=== PATIENT | female | born 1945 | race African-American/Black ===

== ENCOUNTER 2022-01-25 15:49 | Inpatient (IN) | payer OTHER ==
[2022-01-25 16:46] LABS: HEMATOCRIT 31.5 % (32.4-45.2); HEMOGLOBIN 9.4 G/dL (10.7-15.3); MCH 21.4 pg (25.7-33.7); MEAN CELL VOLUME 71.2 fl (80-96); PLATELET COUNT 421.7 10^3/uL (134-434); RBC 4.42 10^6/uL (3.60-5.2); RDW 21.2 % (11.6-15.6); WHITE BLOOD COUNT 10.8 10^3/uL (4.0-10.8)
[2022-01-25 16:49] LABS: ALBUMIN 3.3 g/dl (3.4-5.0); BILIRUBIN,TOTAL 0.9 mg/dl (0.2-1); CALCIUM 9.4 mg/dl (8.5-10); CREATININE 1.6 mg/dl (0.55-1.3); TOT PROT 6.8 g/dl (6.4-8.2)
[2022-01-25] MEDS ORDERED: CEFTRIAXONE 1,000 MG in DEXTROSE 5%-WATER - 50 ML IVPB ONE (17:03)
[2022-01-25] MEDS ORDERED: AZITHROMYCIN IVPB 500 MG in DEXTROSE 5%-WATER - 250 ML IVPB ONE (17:03)
[2022-01-25] MEDS ORDERED: AZITHROMYCIN 500 MG VIAL IVPB ONE (17:06)
[2022-01-25] MEDS ORDERED: cefTRIAXone SODIUM 1 GM VIAL ONE (17:06)
[2022-01-25 17:40] LABS: N-TERMINAL BNP 8650.9 pg/ml (5-450)
[2022-01-25 17:55] LABS: PLATELET ESTIMATE SLT INCREASE
[2022-01-25 17:58] LABS: LACTIC ACID 3.1 mmol/L (0.4-2.0)
[2022-01-25] MEDS ORDERED: SODIUM CHLORIDE 1,000 ML IV SCH (18:30)
[2022-01-25] MEDS ORDERED: OXcarbazepine 300 MG TABLET (UD) PO ONE (23:37)
[2022-01-26] MEDS: CALCIUM (OYSTER SHELL) 500 MG TABLET (FP) PO SCH ×2 (00:40→09:56)
[2022-01-26] MEDS ORDERED: ALBUTEROL SO4 2.5/IPRATROPIUM 0.5 INH SOL 3 ML VIAL.NEB. NEB ONE ×2 (06:13→06:14)
[2022-01-26] MEDS ORDERED: FUROSEMIDE 40 MG/4 ML INJECTABLE VIAL IVPUSH ONE (06:46)
[2022-01-26 08:04] LABS: HEMATOCRIT 27.8 % (32.4-45.2); HEMOGLOBIN 8.3 G/dL (10.7-15.3); MCH 21.2 pg (25.7-33.7); MCHC 29.8 g/dl (32.0-36.0); MEAN CELL VOLUME 71.3 fl (80-96); MEAN PLT VOLUME 7.5 fl (7.5-11.1); PLATELET COUNT 327.6 10^3/uL (134-434); WHITE BLOOD COUNT 9.6 10^3/uL (4.0-10.8)
[2022-01-26 08:59] LABS: ANISOCYTOSIS 2+; PLATELET ESTIMATE ADEQUATE
[2022-01-26] MEDS ORDERED: cefTRIAXone SODIUM 1 GM VIAL ONE (09:38)
[2022-01-26] MEDS ORDERED: DEXTROSE 5%-WATER - 50 ML IVPB ONE (09:38)
[2022-01-26] MEDS: CEFTRIAXONE 1 GM in DEXTROSE 5%-WATER - 50 ML IVPB SCH (09:52)
[2022-01-26] MEDS: MULTIVITAMINS (DAILY MVI) TABLET (FP) PO SCH (09:57)
[2022-01-26] MEDS: ASPIRIN/DIPYRIDAMOLE 25 MG/200 MG CAPSULE PO SCH ×2 (09:58→23:16)
[2022-01-26] MEDS: amLODIPine BESYLATE 10 MG TABLET (FP) PO SCH (09:58)
[2022-01-26] MEDS: metoPROLOL SUCCINATE 25 MG TAB.SR.24H (FP) PO SCH (09:58)
[2022-01-26] MEDS ORDERED: FAMOTIDINE 40 MG PO SCH (10:00)
[2022-01-26] MEDS ORDERED: FUROSEMIDE 40 MG/4 ML INJECTABLE VIAL IVPUSH SCH (10:00)
[2022-01-26] MEDS: ALBUTEROL SO4 2.5/IPRATROPIUM 0.5 INH SOL 3 ML VIAL.NEB. NEB SCH ×2 (10:00→14:23)
[2022-01-26] MEDS ORDERED: PATIENT'S OWN MEDICATION (NON-FORMULARY) (Brimonidine Tartrate/Timolol [Combigan 0.2%-0.5% OP SCH (10:00)
[2022-01-26] MEDS ORDERED: HYDROCHLOROTHIAZIDE 25 MG TABLET (FP) PO SCH (10:00)
[2022-01-26] MEDS ORDERED: HEPARIN NA (PORCINE) 5,000 UNITS/ML 1ML VIAL SQ SCH (10:00)
[2022-01-26] MEDS ORDERED: FAMOTIDINE 20 MG TABLET PO SCH (11:00)
[2022-01-26] MEDS: FUROSEMIDE 40 MG/4 ML INJECTABLE VIAL IVPUSH SCH (11:30)
[2022-01-26] MEDS: AZITHROMYCIN IVPB 500 MG/250 ML BAG IVPB SCH (11:32)
[2022-01-26] MEDS: OXcarbazepine 300 MG TABLET (UD) PO SCH ×2 (11:34→23:14)
[2022-01-26] MEDS: FAMOTIDINE 20 MG TABLET PO SCH (11:34)
[2022-01-26] MEDS: HEPARIN NA (PORCINE) 5,000 UNITS/ML 1ML VIAL SQ SCH ×2 (14:23→23:14)
[2022-01-26 17:59] LABS: VENOUS O2 SATURATION 57.2 % (70-80); VENOUS PCO2 44.1 mmHg (38-52); VENOUS PH 7.43 (7.310-7.410)
[2022-01-26] MEDS ORDERED: traZODone HCL 100 MG TABLET (FP) PO SCH (22:00)
[2022-01-26] MEDS: ROSUVASTATIN CA 20 MG TABLET PO SCH (23:14)
[2022-01-26] MEDS: TIMOLOL 0.5% OPHTHALMIC SOL 5 ML BOTTLE OU SCH (23:15)
[2022-01-26] MEDS: BRIMONIDINE TARTRATE 0.2% OPHTHALMIC 5 ML BOTTLE OU SCH (23:16)
[2022-01-27] MEDS: HEPARIN NA (PORCINE) 5,000 UNITS/ML 1ML VIAL SQ SCH ×3 (05:31→22:04)
[2022-01-27] MEDS ORDERED: cefTRIAXone SODIUM 1 GM VIAL ONE (09:30)
[2022-01-27] MEDS ORDERED: DEXTROSE 5%-WATER - 50 ML IVPB ONE (09:30)
[2022-01-27] MEDS: OXcarbazepine 300 MG TABLET (UD) PO SCH ×2 (09:43→22:02)
[2022-01-27] MEDS: amLODIPine BESYLATE 10 MG TABLET (FP) PO SCH (09:47)
[2022-01-27] MEDS: CALCIUM (OYSTER SHELL) 500 MG TABLET (FP) PO SCH (09:47)
[2022-01-27] MEDS: MULTIVITAMINS (DAILY MVI) TABLET (FP) PO SCH (09:47)
[2022-01-27] MEDS: metoPROLOL SUCCINATE 25 MG TAB.SR.24H (FP) PO SCH (09:48)
[2022-01-27] MEDS: FAMOTIDINE 20 MG TABLET PO SCH (09:48)
[2022-01-27] MEDS: CEFTRIAXONE 1 GM in DEXTROSE 5%-WATER - 50 ML IVPB SCH (09:51)
[2022-01-27] MEDS: AZITHROMYCIN IVPB 500 MG/250 ML BAG IVPB SCH ×3 (09:52→15:09)
[2022-01-27] MEDS: ASPIRIN/DIPYRIDAMOLE 25 MG/200 MG CAPSULE PO SCH ×2 (09:53→22:03)
[2022-01-27] MEDS: FUROSEMIDE 40 MG/4 ML INJECTABLE VIAL IVPUSH SCH (09:57)
[2022-01-27 09:59] LABS: BASO % 0.8 % (0-2.0); EOS % 4.6 % (0-4.5); HEMATOCRIT 30.1 % (32.4-45.2); HEMOGLOBIN 8.6 GM/dL (10.7-15.3); LYMPH % 14.4 % (8-40); MCH 20.1 pg (25.7-33.7); MCHC 28.4 g/dl (32.0-36.0); MEAN CELL VOLUME 70.5 fl (80-96); MEAN PLT VOLUME 7.3 fl (7.5-11.1); MONO % 14.7 % (3.8-10.2); NEUT % 65.5 % (42.8-82.8); PLATELET COUNT 290 10^3/uL (134-434); RBC 4.27 M/mm3 (3.60-5.2); RDW 21.7 % (11.6-15.6); WHITE BLOOD COUNT 9.7 K/mm3 (4.0-10.0)
[2022-01-27 10:16] LABS: ALBUMIN 2.8 g/dl (3.4-5.0); BLOOD UREA NITROGEN 26.9 mg/dL (7-18); CALCIUM 9.1 mg/dL (8.5-10.1)
[2022-01-27 10:19] LABS: CREATININE 1.2 mg/dL (0.55-1.3)
[2022-01-27 10:21] LABS: BILIRUBIN,TOTAL 0.4 mg/dL (0.2-1)
[2022-01-27] MEDS ORDERED: IRON SUCROSE INJECTION 200 MG in SODIUM CHLORIDE 90 ML IVPB ONE (15:30)
[2022-01-27] MEDS ORDERED: traZODone HCL 50 MG TABLET (FP) ONE (21:18)
[2022-01-27] MEDS: ROSUVASTATIN CA 20 MG TABLET PO SCH (22:03)
[2022-01-27] MEDS: BRIMONIDINE TARTRATE 0.2% OPHTHALMIC 5 ML BOTTLE OU SCH (22:06)
[2022-01-27] MEDS: TIMOLOL 0.5% OPHTHALMIC SOL 5 ML BOTTLE OU SCH (22:06)
[2022-01-27] MEDS: traZODone HCL 50 MG TABLET (FP) PO SCH (22:15)
[2022-01-28] MEDS: HEPARIN NA (PORCINE) 5,000 UNITS/ML 1ML VIAL SQ SCH ×3 (06:27→21:58)
[2022-01-28] MEDS ORDERED: cefTRIAXone SODIUM 1 GM VIAL ONE ×3 (07:44→10:41)
[2022-01-28] MEDS ORDERED: DEXTROSE 5%-WATER - 50 ML IVPB ONE (08:49)
[2022-01-28 08:53] LABS: BASO % 0.7 % (0-2.0); EOS % 6.2 % (0-4.5); HEMATOCRIT 28.8 % (32.4-45.2); HEMOGLOBIN 8.5 GM/dL (10.7-15.3); LYMPH % 17.3 % (8-40); MCH 20.4 pg (25.7-33.7); MCHC 29.6 g/dl (32.0-36.0); MEAN CELL VOLUME 68.8 fl (80-96); MEAN PLT VOLUME 8.4 fl (7.5-11.1); MONO % 13.6 % (3.8-10.2); NEUT % 62.2 % (42.8-82.8); PLATELET COUNT 287 10^3/uL (134-434); RBC 4.19 M/mm3 (3.60-5.2); RDW 21.6 % (11.6-15.6); WHITE BLOOD COUNT 8.2 K/mm3 (4.0-10.0)
[2022-01-28] MEDS: CEFTRIAXONE 1 GM in DEXTROSE 5%-WATER - 50 ML IVPB SCH (09:03)
[2022-01-28] MEDS: FUROSEMIDE 40 MG/4 ML INJECTABLE VIAL IVPUSH SCH (09:03)
[2022-01-28] MEDS: CALCIUM (OYSTER SHELL) 500 MG TABLET (FP) PO SCH (09:04)
[2022-01-28] MEDS: FAMOTIDINE 20 MG TABLET PO SCH (09:04)
[2022-01-28] MEDS: AZITHROMYCIN IVPB 500 MG/250 ML BAG IVPB SCH (09:04)
[2022-01-28] MEDS: amLODIPine BESYLATE 10 MG TABLET (FP) PO SCH (09:04)
[2022-01-28] MEDS: MULTIVITAMINS (DAILY MVI) TABLET (FP) PO SCH (09:04)
[2022-01-28] MEDS: metoPROLOL SUCCINATE 25 MG TAB.SR.24H (FP) PO SCH (09:04)
[2022-01-28] MEDS: OXcarbazepine 300 MG TABLET (UD) PO SCH ×2 (09:12→22:22)
[2022-01-28] MEDS: ASPIRIN/DIPYRIDAMOLE 25 MG/200 MG CAPSULE PO SCH ×2 (09:12→22:22)
[2022-01-28 09:20] LABS: ALBUMIN 2.9 g/dl (3.4-5.0); BLOOD UREA NITROGEN 20.1 mg/dL (7-18); CALCIUM 9.3 mg/dL (8.5-10.1); MAGNESIUM 1.9 mg/dL (1.8-2.4)
[2022-01-28 09:22] LABS: PHOSPHOROUS 3.6 mg/dL (2.5-4.9)
[2022-01-28 09:24] LABS: BILIRUBIN,TOTAL 0.8 mg/dL (0.2-1); TOT PROT 6.1 g/dl (6.4-8.2)
[2022-01-28] MEDS ORDERED: ALBUTEROL SO4 2.5/IPRATROPIUM 0.5 INH SOL 3 ML VIAL.NEB. NEB SCH (11:30)
[2022-01-28] MEDS: ALBUTEROL SO4 2.5/IPRATROPIUM 0.5 INH SOL 3 ML VIAL.NEB. NEB SCH ×3 (13:16→20:45)
[2022-01-28] MEDS: predniSONE 20 MG TABLET (UD) PO SCH (15:39)
[2022-01-28] MEDS: ROSUVASTATIN CA 20 MG TABLET PO SCH (21:59)
[2022-01-28] MEDS: traZODone HCL 50 MG TABLET (FP) PO SCH (21:59)
[2022-01-28] MEDS: BRIMONIDINE TARTRATE 0.2% OPHTHALMIC 5 ML BOTTLE OU SCH (22:08)
[2022-01-28] MEDS: TIMOLOL 0.5% OPHTHALMIC SOL 5 ML BOTTLE OU SCH (22:08)
[2022-01-29] MEDS: HEPARIN NA (PORCINE) 5,000 UNITS/ML 1ML VIAL SQ SCH ×3 (05:59→21:28)
[2022-01-29] MEDS: ALBUTEROL SO4 2.5/IPRATROPIUM 0.5 INH SOL 3 ML VIAL.NEB. NEB SCH ×3 (07:15→20:02)
[2022-01-29] MEDS ORDERED: IRON SUCROSE INJECTION 200 MG in SODIUM CHLORIDE 90 ML IVPB ONE (08:00)
[2022-01-29 08:46] LABS: BASO % 0.9 % (0-2.0); EOS % 0.5 % (0-4.5); HEMATOCRIT 30.4 % (32.4-45.2); HEMOGLOBIN 8.9 GM/dL (10.7-15.3); LYMPH % 21.4 % (8-40); MCH 20.3 pg (25.7-33.7); MCHC 29.2 g/dl (32.0-36.0); MEAN CELL VOLUME 69.4 fl (80-96); MEAN PLT VOLUME 8.2 fl (7.5-11.1); MONO % 9.4 % (3.8-10.2); NEUT % 67.8 % (42.8-82.8); PLATELET COUNT 298 10^3/uL (134-434); RBC 4.38 M/mm3 (3.60-5.2); WHITE BLOOD COUNT 7.7 K/mm3 (4.0-10.0)
[2022-01-29 09:09] LABS: CALCIUM 9.7 mg/dL (8.5-10.1)
[2022-01-29 09:10] LABS: BLOOD UREA NITROGEN 19.4 mg/dL (7-18)
[2022-01-29 09:14] LABS: BILIRUBIN,TOTAL 0.4 mg/dL (0.2-1); TOT PROT 6.6 g/dl (6.4-8.2)
[2022-01-29] MEDS: FUROSEMIDE 40 MG/4 ML INJECTABLE VIAL IVPUSH SCH (09:59)
[2022-01-29] MEDS: predniSONE 20 MG TABLET (UD) PO SCH (09:59)
[2022-01-29] MEDS: metoPROLOL SUCCINATE 25 MG TAB.SR.24H (FP) PO SCH (09:59)
[2022-01-29] MEDS: MULTIVITAMINS (DAILY MVI) TABLET (FP) PO SCH (09:59)
[2022-01-29] MEDS: CALCIUM (OYSTER SHELL) 500 MG TABLET (FP) PO SCH (09:59)
[2022-01-29] MEDS: ASPIRIN/DIPYRIDAMOLE 25 MG/200 MG CAPSULE PO SCH ×2 (10:00→21:29)
[2022-01-29] MEDS: FAMOTIDINE 20 MG TABLET PO SCH (10:00)
[2022-01-29] MEDS: OXcarbazepine 300 MG TABLET (UD) PO SCH ×2 (10:00→21:30)
[2022-01-29] MEDS: amLODIPine BESYLATE 10 MG TABLET (FP) PO SCH (10:00)
[2022-01-29] MEDS ORDERED: POTASSIUM CHLORIDE TABS 20 MEQ TABLET.ER (FP) PO ONE (10:17)
[2022-01-29 12:39] LABS: ANISOCYTOSIS 2+
[2022-01-29] MEDS: ROSUVASTATIN CA 20 MG TABLET PO SCH (21:28)
[2022-01-29] MEDS: traZODone HCL 50 MG TABLET (FP) PO SCH (21:29)
[2022-01-29] MEDS: BRIMONIDINE TARTRATE 0.2% OPHTHALMIC 5 ML BOTTLE OU SCH (21:32)
[2022-01-29] MEDS: TIMOLOL 0.5% OPHTHALMIC SOL 5 ML BOTTLE OU SCH (21:32)
[2022-01-30] MEDS: HEPARIN NA (PORCINE) 5,000 UNITS/ML 1ML VIAL SQ SCH ×3 (06:28→22:33)
[2022-01-30] MEDS: ALBUTEROL SO4 2.5/IPRATROPIUM 0.5 INH SOL 3 ML VIAL.NEB. NEB SCH ×3 (07:35→19:37)
[2022-01-30 08:49] LABS: HEMATOCRIT 28.5 % (32.4-45.2); HEMOGLOBIN 8.3 GM/dL (10.7-15.3); MCH 20.6 pg (25.7-33.7); MCHC 29.1 g/dl (32.0-36.0); MEAN CELL VOLUME 70.8 fl (80-96); MEAN PLT VOLUME 7.6 fl (7.5-11.1); PLATELET COUNT 279 10^3/uL (134-434); RBC 4.02 M/mm3 (3.60-5.2); RDW 21.9 % (11.6-15.6); WHITE BLOOD COUNT 9.6 K/mm3 (4.0-10.0)
[2022-01-30 09:01] LABS: CALCIUM 9.6 mg/dL (8.5-10.1)
[2022-01-30 09:05] LABS: PHOSPHOROUS 3.5 mg/dL (2.5-4.9)
[2022-01-30 09:07] LABS: BILIRUBIN,TOTAL 0.6 mg/dL (0.2-1); TOT PROT 6.2 g/dl (6.4-8.2)
[2022-01-30] MEDS: OXcarbazepine 300 MG TABLET (UD) PO SCH ×2 (10:28→22:48)
[2022-01-30] MEDS: MULTIVITAMINS (DAILY MVI) TABLET (FP) PO SCH (10:29)
[2022-01-30] MEDS: metoPROLOL SUCCINATE 25 MG TAB.SR.24H (FP) PO SCH (10:29)
[2022-01-30] MEDS: FAMOTIDINE 20 MG TABLET PO SCH (10:29)
[2022-01-30] MEDS: predniSONE 20 MG TABLET (UD) PO SCH (10:29)
[2022-01-30] MEDS: amLODIPine BESYLATE 10 MG TABLET (FP) PO SCH (10:29)
[2022-01-30] MEDS: FUROSEMIDE 40 MG/4 ML INJECTABLE VIAL IVPUSH SCH (10:29)
[2022-01-30] MEDS: ASPIRIN/DIPYRIDAMOLE 25 MG/200 MG CAPSULE PO SCH ×2 (10:30→22:36)
[2022-01-30] MEDS: CALCIUM (OYSTER SHELL) 500 MG TABLET (FP) PO SCH (10:30)
[2022-01-30 12:04] LABS: ANISOCYTOSIS 2+; MACROCYTOSIS 0; TARGET CELLS 2+; TEAR DROP CELLS 1+
[2022-01-30] MEDS: BRIMONIDINE TARTRATE 0.2% OPHTHALMIC 5 ML BOTTLE OU SCH (22:32)
[2022-01-30] MEDS: traZODone HCL 50 MG TABLET (FP) PO SCH (22:33)
[2022-01-30] MEDS: TIMOLOL 0.5% OPHTHALMIC SOL 5 ML BOTTLE OU SCH (22:33)
[2022-01-30] MEDS: ROSUVASTATIN CA 20 MG TABLET PO SCH (22:33)
[2022-01-31] MEDS: HEPARIN NA (PORCINE) 5,000 UNITS/ML 1ML VIAL SQ SCH ×3 (05:47→22:23)
[2022-01-31] MEDS: ALBUTEROL SO4 2.5/IPRATROPIUM 0.5 INH SOL 3 ML VIAL.NEB. NEB SCH ×3 (08:45→20:58)
[2022-01-31] MEDS: FAMOTIDINE 20 MG TABLET PO SCH (11:10)
[2022-01-31] MEDS: predniSONE 20 MG TABLET (UD) PO SCH (11:10)
[2022-01-31] MEDS: amLODIPine BESYLATE 10 MG TABLET (FP) PO SCH (11:10)
[2022-01-31] MEDS: CALCIUM (OYSTER SHELL) 500 MG TABLET (FP) PO SCH (11:10)
[2022-01-31] MEDS: MULTIVITAMINS (DAILY MVI) TABLET (FP) PO SCH (11:13)
[2022-01-31] MEDS: FUROSEMIDE 40 MG/4 ML INJECTABLE VIAL IVPUSH SCH (11:13)
[2022-01-31] MEDS: metoPROLOL SUCCINATE 25 MG TAB.SR.24H (FP) PO SCH (11:13)
[2022-01-31] MEDS: ASPIRIN/DIPYRIDAMOLE 25 MG/200 MG CAPSULE PO SCH ×2 (11:21→22:22)
[2022-01-31] MEDS: OXcarbazepine 300 MG TABLET (UD) PO SCH ×2 (11:21→22:22)
[2022-01-31] MEDS ORDERED: DEXTROSE 5%-WATER - 50 ML IVPB ONE (11:46)
[2022-01-31] MEDS ORDERED: cefTRIAXone SODIUM 1 GM VIAL ONE (11:46)
[2022-01-31] MEDS ORDERED: AZITHROMYCIN IVPB 500 MG/250 ML BAG IVPB ONE (12:00)
[2022-01-31] MEDS: CEFTRIAXONE 1 GM in DEXTROSE 5%-WATER - 50 ML IVPB SCH (12:04)
[2022-01-31] MEDS: guaiFENesin 600 MG TABLET.ER (FP) PO SCH ×2 (13:03→22:22)
[2022-01-31] MEDS ORDERED: FUROSEMIDE 40 MG/4 ML INJECTABLE VIAL IVPUSH ONE (14:00)
[2022-01-31 15:05] LABS: HEMATOCRIT 29.8 % (32.4-45.2); HEMOGLOBIN 8.6 GM/dL (10.7-15.3); MCH 20.6 pg (25.7-33.7); MCHC 28.7 g/dl (32.0-36.0); MEAN CELL VOLUME 71.7 fl (80-96); MEAN PLT VOLUME 8.4 fl (7.5-11.1); PLATELET COUNT 291 10^3/uL (134-434); RBC 4.16 M/mm3 (3.60-5.2); RDW 22.6 % (11.6-15.6); WHITE BLOOD COUNT 8.5 K/mm3 (4.0-10.0)
[2022-01-31 15:35] LABS: CALCIUM 9.4 mg/dL (8.5-10.1)
[2022-01-31 15:36] LABS: ALBUMIN 3.1 g/dl (3.4-5.0); BLOOD UREA NITROGEN 24.4 mg/dL (7-18)
[2022-01-31 15:39] LABS: CREATININE 1.1 mg/dL (0.55-1.3)
[2022-01-31 15:40] LABS: BILIRUBIN,TOTAL 0.3 mg/dL (0.2-1); TOT PROT 6.4 g/dl (6.4-8.2)
[2022-01-31] MEDS: ROSUVASTATIN CA 20 MG TABLET PO SCH (22:22)
[2022-01-31] MEDS: TIMOLOL 0.5% OPHTHALMIC SOL 5 ML BOTTLE OU SCH (22:22)
[2022-01-31] MEDS: BRIMONIDINE TARTRATE 0.2% OPHTHALMIC 5 ML BOTTLE OU SCH (22:22)
[2022-01-31] MEDS: traZODone HCL 50 MG TABLET (FP) PO SCH (22:23)
[2022-02-01] MEDS: HEPARIN NA (PORCINE) 5,000 UNITS/ML 1ML VIAL SQ SCH ×3 (06:10→21:45)
[2022-02-01] MEDS: ALBUTEROL SO4 2.5/IPRATROPIUM 0.5 INH SOL 3 ML VIAL.NEB. NEB SCH ×3 (08:50→20:37)
[2022-02-01] MEDS ORDERED: cefTRIAXone SODIUM 1 GM VIAL ONE (09:07)
[2022-02-01] MEDS ORDERED: DEXTROSE 5%-WATER - 50 ML IVPB ONE (09:07)
[2022-02-01] MEDS: AZITHROMYCIN IVPB 250 MG in DEXTROSE 5%-WATER - 250 ML IVPB SCH (09:14)
[2022-02-01] MEDS: CALCIUM (OYSTER SHELL) 500 MG TABLET (FP) PO SCH (09:14)
[2022-02-01] MEDS: FUROSEMIDE 40 MG/4 ML INJECTABLE VIAL IVPUSH SCH (09:14)
[2022-02-01] MEDS: CEFTRIAXONE 1 GM in DEXTROSE 5%-WATER - 50 ML IVPB SCH (09:14)
[2022-02-01] MEDS: OXcarbazepine 300 MG TABLET (UD) PO SCH ×2 (09:15→22:54)
[2022-02-01] MEDS: guaiFENesin 600 MG TABLET.ER (FP) PO SCH ×2 (09:15→21:45)
[2022-02-01] MEDS: FAMOTIDINE 20 MG TABLET PO SCH (09:15)
[2022-02-01] MEDS: predniSONE 20 MG TABLET (UD) PO SCH (09:15)
[2022-02-01] MEDS: metoPROLOL SUCCINATE 25 MG TAB.SR.24H (FP) PO SCH (09:15)
[2022-02-01] MEDS: amLODIPine BESYLATE 10 MG TABLET (FP) PO SCH (09:15)
[2022-02-01] MEDS: ASPIRIN/DIPYRIDAMOLE 25 MG/200 MG CAPSULE PO SCH ×2 (09:15→22:54)
[2022-02-01] MEDS: MULTIVITAMINS (DAILY MVI) TABLET (FP) PO SCH (09:15)
[2022-02-01 09:18] LABS: HEMATOCRIT 30.3 % (32.4-45.2); HEMOGLOBIN 8.7 GM/dL (10.7-15.3); MCH 20.5 pg (25.7-33.7); MCHC 28.6 g/dl (32.0-36.0); MEAN CELL VOLUME 71.8 fl (80-96); PLATELET COUNT 291 10^3/uL (134-434); RBC 4.23 M/mm3 (3.60-5.2); WHITE BLOOD COUNT 8.9 K/mm3 (4.0-10.0)
[2022-02-01 09:51] LABS: CALCIUM 9.4 mg/dL (8.5-10.1)
[2022-02-01 09:52] LABS: BLOOD UREA NITROGEN 22.9 mg/dL (7-18)
[2022-02-01 10:04] LABS: CREATININE 0.9 mg/dL (0.55-1.3)
[2022-02-01] MEDS ORDERED: FUROSEMIDE 40 MG/4 ML INJECTABLE VIAL IVPUSH ONE (10:50)
[2022-02-01] MEDS: POLYETHYLENE GLYCOL (HEALTHYLAX) 3350 17 GM PACKET PO SCH (11:05)
[2022-02-01] MEDS: traZODone HCL 50 MG TABLET (FP) PO SCH (21:45)
[2022-02-01] MEDS: ROSUVASTATIN CA 20 MG TABLET PO SCH (21:46)
[2022-02-01] MEDS: TIMOLOL 0.5% OPHTHALMIC SOL 5 ML BOTTLE OU SCH (21:53)
[2022-02-01] MEDS: BRIMONIDINE TARTRATE 0.2% OPHTHALMIC 5 ML BOTTLE OU SCH (21:53)
[2022-02-02] MEDS: HEPARIN NA (PORCINE) 5,000 UNITS/ML 1ML VIAL SQ SCH (06:16)
[2022-02-02] MEDS: FUROSEMIDE 40 MG/4 ML INJECTABLE VIAL IVPUSH SCH ×2 (06:17→17:14)
[2022-02-02] MEDS: ALBUTEROL SO4 2.5/IPRATROPIUM 0.5 INH SOL 3 ML VIAL.NEB. NEB SCH ×3 (08:12→20:06)
[2022-02-02 09:30] LABS: BLOOD UREA NITROGEN 22.9 mg/dL (7-18)
[2022-02-02 09:33] LABS: CREATININE 0.9 mg/dL (0.55-1.3)
[2022-02-02] MEDS ORDERED: predniSONE 20 MG TABLET (UD) PO SCH ×3 (10:00→15:00)
[2022-02-02] MEDS ORDERED: cefTRIAXone SODIUM 1 GM VIAL ONE (10:17)
[2022-02-02] MEDS ORDERED: DEXTROSE 5%-WATER - 50 ML IVPB ONE (10:17)
[2022-02-02] MEDS: CEFTRIAXONE 1 GM in DEXTROSE 5%-WATER - 50 ML IVPB SCH (10:20)
[2022-02-02] MEDS: OXcarbazepine 300 MG TABLET (UD) PO SCH ×2 (10:23→22:55)
[2022-02-02] MEDS: metoPROLOL SUCCINATE 25 MG TAB.SR.24H (FP) PO SCH (10:23)
[2022-02-02] MEDS: guaiFENesin 600 MG TABLET.ER (FP) PO SCH ×2 (10:23→22:54)
[2022-02-02] MEDS: POLYETHYLENE GLYCOL (HEALTHYLAX) 3350 17 GM PACKET PO SCH (10:23)
[2022-02-02] MEDS: FAMOTIDINE 20 MG TABLET PO SCH (10:23)
[2022-02-02] MEDS: MULTIVITAMINS (DAILY MVI) TABLET (FP) PO SCH (10:24)
[2022-02-02] MEDS: CALCIUM (OYSTER SHELL) 500 MG TABLET (FP) PO SCH (10:24)
[2022-02-02] MEDS: AZITHROMYCIN IVPB 250 MG in DEXTROSE 5%-WATER - 250 ML IVPB SCH (10:24)
[2022-02-02] MEDS: amLODIPine BESYLATE 10 MG TABLET (FP) PO SCH (10:24)
[2022-02-02] MEDS: ASPIRIN/DIPYRIDAMOLE 25 MG/200 MG CAPSULE PO SCH ×2 (10:25→22:54)
[2022-02-02 11:06] LABS: HEMATOCRIT 32.6 % (32.4-45.2); HEMOGLOBIN 9.7 GM/dL (10.7-15.3); MCH 21.4 pg (25.7-33.7); MCHC 29.8 g/dl (32.0-36.0); MEAN CELL VOLUME 71.8 fl (80-96); MEAN PLT VOLUME 8.4 fl (7.5-11.1); PLATELET COUNT 284 10^3/uL (134-434); RBC 4.54 M/mm3 (3.60-5.2); RDW 23.2 % (11.6-15.6); WHITE BLOOD COUNT 7.9 K/mm3 (4.0-10.0)
[2022-02-02 15:00] VITALS: BMI 31.0
[2022-02-02] MEDS: ENOXAPARIN NA (PORCINE) 40 MG/0.4 ML DISP.SYRIN SQ SCH (17:13)
[2022-02-02] MEDS: traZODone HCL 50 MG TABLET (FP) PO SCH (22:54)
[2022-02-02] MEDS: ROSUVASTATIN CA 20 MG TABLET PO SCH (22:54)
[2022-02-02] MEDS: BRIMONIDINE TARTRATE 0.2% OPHTHALMIC 5 ML BOTTLE OU SCH (22:56)
[2022-02-02] MEDS: TIMOLOL 0.5% OPHTHALMIC SOL 5 ML BOTTLE OU SCH (22:56)
[2022-02-03] MEDS: FUROSEMIDE 40 MG/4 ML INJECTABLE VIAL IVPUSH SCH (05:48)
[2022-02-03] MEDS: ALBUTEROL SO4 2.5/IPRATROPIUM 0.5 INH SOL 3 ML VIAL.NEB. NEB SCH ×3 (08:02→20:53)
[2022-02-03] MEDS: CALCIUM (OYSTER SHELL) 500 MG TABLET (FP) PO SCH (12:26)
[2022-02-03] MEDS: guaiFENesin 600 MG TABLET.ER (FP) PO SCH ×2 (12:30→22:23)
[2022-02-03] MEDS: metoPROLOL SUCCINATE 25 MG TAB.SR.24H (FP) PO SCH (12:30)
[2022-02-03] MEDS: FAMOTIDINE 20 MG TABLET PO SCH (12:31)
[2022-02-03] MEDS: amLODIPine BESYLATE 10 MG TABLET (FP) PO SCH (12:31)
[2022-02-03] MEDS: MULTIVITAMINS (DAILY MVI) TABLET (FP) PO SCH (12:31)
[2022-02-03] MEDS: ASPIRIN/DIPYRIDAMOLE 25 MG/200 MG CAPSULE PO SCH ×2 (12:32→22:23)
[2022-02-03] MEDS: ENOXAPARIN NA (PORCINE) 40 MG/0.4 ML DISP.SYRIN SQ SCH (12:32)
[2022-02-03] MEDS: OXcarbazepine 300 MG TABLET (UD) PO SCH ×2 (12:32→22:24)
[2022-02-03] MEDS: POLYETHYLENE GLYCOL (HEALTHYLAX) 3350 17 GM PACKET PO SCH (12:33)
[2022-02-03] MEDS: predniSONE 5 MG TABLET (UD) PO SCH (14:35)
[2022-02-03 21:13] LABS: ALBUMIN 3.2 g/dl (3.4-5.0); BLOOD UREA NITROGEN 34.9 mg/dL (7-18); CALCIUM 9.2 mg/dL (8.5-10.1)
[2022-02-03 21:17] LABS: CREATININE 1.5 mg/dL (0.55-1.3)
[2022-02-03 21:19] LABS: BILIRUBIN,TOTAL 0.3 mg/dL (0.2-1); TOT PROT 6.6 g/dl (6.4-8.2)
[2022-02-03] MEDS: traZODone HCL 50 MG TABLET (FP) PO SCH (22:23)
[2022-02-03] MEDS: ROSUVASTATIN CA 20 MG TABLET PO SCH (22:24)
[2022-02-03] MEDS: TIMOLOL 0.5% OPHTHALMIC SOL 5 ML BOTTLE OU SCH (22:25)
[2022-02-03] MEDS: BRIMONIDINE TARTRATE 0.2% OPHTHALMIC 5 ML BOTTLE OU SCH (22:25)
[2022-02-04] MEDS: ALBUTEROL SO4 2.5/IPRATROPIUM 0.5 INH SOL 3 ML VIAL.NEB. NEB SCH ×3 (08:10→20:05)
[2022-02-04 08:43] LABS: HEMATOCRIT 33.4 % (32.4-45.2); HEMOGLOBIN 9.8 GM/dL (10.7-15.3); MCH 20.9 pg (25.7-33.7); MCHC 29.2 g/dl (32.0-36.0); MEAN CELL VOLUME 71.5 fl (80-96); MEAN PLT VOLUME 8.8 fl (7.5-11.1); PLATELET COUNT 278 10^3/uL (134-434); RBC 4.67 M/mm3 (3.60-5.2); RDW 25.6 % (11.6-15.6); WHITE BLOOD COUNT 7.5 K/mm3 (4.0-10.0)
[2022-02-04 08:47] LABS: CALCIUM 9.2 mg/dL (8.5-10.1)
[2022-02-04 08:49] LABS: BLOOD UREA NITROGEN 28.2 mg/dL (7-18)
[2022-02-04] MEDS: ENOXAPARIN NA (PORCINE) 40 MG/0.4 ML DISP.SYRIN SQ SCH (09:10)
[2022-02-04] MEDS: ASPIRIN/DIPYRIDAMOLE 25 MG/200 MG CAPSULE PO SCH ×2 (09:10→22:29)
[2022-02-04] MEDS: OXcarbazepine 300 MG TABLET (UD) PO SCH ×2 (09:10→22:29)
[2022-02-04] MEDS: POLYETHYLENE GLYCOL (HEALTHYLAX) 3350 17 GM PACKET PO SCH (09:10)
[2022-02-04] MEDS: MULTIVITAMINS (DAILY MVI) TABLET (FP) PO SCH (09:10)
[2022-02-04] MEDS: predniSONE 5 MG TABLET (UD) PO SCH (09:11)
[2022-02-04] MEDS: amLODIPine BESYLATE 10 MG TABLET (FP) PO SCH (09:11)
[2022-02-04] MEDS: FAMOTIDINE 20 MG TABLET PO SCH (09:11)
[2022-02-04] MEDS: guaiFENesin 600 MG TABLET.ER (FP) PO SCH ×2 (09:11→22:29)
[2022-02-04] MEDS: CALCIUM (OYSTER SHELL) 500 MG TABLET (FP) PO SCH (09:11)
[2022-02-04] MEDS: metoPROLOL SUCCINATE 25 MG TAB.SR.24H (FP) PO SCH (09:11)
[2022-02-04] MEDS: FUROSEMIDE 40 MG/4 ML INJECTABLE VIAL IVPUSH SCH (09:17)
[2022-02-04] MEDS: ROSUVASTATIN CA 20 MG TABLET PO SCH (22:29)
[2022-02-04] MEDS: traZODone HCL 50 MG TABLET (FP) PO SCH (22:29)
[2022-02-04] MEDS: TIMOLOL 0.5% OPHTHALMIC SOL 5 ML BOTTLE OU SCH (22:30)
[2022-02-04] MEDS: BRIMONIDINE TARTRATE 0.2% OPHTHALMIC 5 ML BOTTLE OU SCH (22:44)
[2022-02-05] MEDS: ALBUTEROL SO4 2.5/IPRATROPIUM 0.5 INH SOL 3 ML VIAL.NEB. NEB SCH ×3 (07:27→20:58)
[2022-02-05] MEDS: ASPIRIN/DIPYRIDAMOLE 25 MG/200 MG CAPSULE PO SCH ×2 (10:10→23:24)
[2022-02-05] MEDS: OXcarbazepine 300 MG TABLET (UD) PO SCH ×2 (10:10→23:24)
[2022-02-05] MEDS: amLODIPine BESYLATE 10 MG TABLET (FP) PO SCH (10:10)
[2022-02-05] MEDS: metoPROLOL SUCCINATE 25 MG TAB.SR.24H (FP) PO SCH (10:10)
[2022-02-05] MEDS: predniSONE 10 MG TABLET (UD) PO SCH (10:10)
[2022-02-05] MEDS: FUROSEMIDE 40 MG/4 ML INJECTABLE VIAL IVPUSH SCH (10:11)
[2022-02-05] MEDS: FAMOTIDINE 20 MG TABLET PO SCH (10:11)
[2022-02-05] MEDS: guaiFENesin 600 MG TABLET.ER (FP) PO SCH ×2 (10:11→22:04)
[2022-02-05] MEDS: CALCIUM (OYSTER SHELL) 500 MG TABLET (FP) PO SCH (10:11)
[2022-02-05] MEDS: MULTIVITAMINS (DAILY MVI) TABLET (FP) PO SCH (10:11)
[2022-02-05] MEDS: POLYETHYLENE GLYCOL (HEALTHYLAX) 3350 17 GM PACKET PO SCH (10:11)
[2022-02-05] MEDS: ENOXAPARIN NA (PORCINE) 40 MG/0.4 ML DISP.SYRIN SQ SCH (10:11)
[2022-02-05 17:29] LABS: CALCIUM 9.2 mg/dL (8.5-10.1)
[2022-02-05 17:30] LABS: ALBUMIN 3.4 g/dl (3.4-5.0); BLOOD UREA NITROGEN 34.1 mg/dL (7-18)
[2022-02-05 17:33] LABS: CREATININE 1.2 mg/dL (0.55-1.3); PHOSPHOROUS 2.8 mg/dL (2.5-4.9)
[2022-02-05 17:35] LABS: BILIRUBIN,TOTAL 0.4 mg/dL (0.2-1); TOT PROT 6.9 g/dl (6.4-8.2)
[2022-02-05] MEDS: TIMOLOL 0.5% OPHTHALMIC SOL 5 ML BOTTLE OU SCH (22:03)
[2022-02-05] MEDS: traZODone HCL 50 MG TABLET (FP) PO SCH (22:04)
[2022-02-05] MEDS: ROSUVASTATIN CA 20 MG TABLET PO SCH (22:04)
[2022-02-05] MEDS: BRIMONIDINE TARTRATE 0.2% OPHTHALMIC 5 ML BOTTLE OU SCH (22:04)
[2022-02-06] MEDS: ALBUTEROL SO4 2.5/IPRATROPIUM 0.5 INH SOL 3 ML VIAL.NEB. NEB SCH ×3 (07:15→20:00)
[2022-02-06] MEDS: MULTIVITAMINS (DAILY MVI) TABLET (FP) PO SCH (09:57)
[2022-02-06] MEDS: FAMOTIDINE 20 MG TABLET PO SCH (09:57)
[2022-02-06] MEDS: CALCIUM (OYSTER SHELL) 500 MG TABLET (FP) PO SCH (09:57)
[2022-02-06] MEDS: predniSONE 10 MG TABLET (UD) PO SCH (09:57)
[2022-02-06] MEDS: metoPROLOL SUCCINATE 25 MG TAB.SR.24H (FP) PO SCH (09:57)
[2022-02-06] MEDS: guaiFENesin 600 MG TABLET.ER (FP) PO SCH ×2 (09:57→21:40)
[2022-02-06] MEDS: amLODIPine BESYLATE 10 MG TABLET (FP) PO SCH (09:57)
[2022-02-06] MEDS: FUROSEMIDE 40 MG/4 ML INJECTABLE VIAL IVPUSH SCH (09:57)
[2022-02-06] MEDS: ASPIRIN/DIPYRIDAMOLE 25 MG/200 MG CAPSULE PO SCH ×2 (09:58→21:41)
[2022-02-06] MEDS: ENOXAPARIN NA (PORCINE) 40 MG/0.4 ML DISP.SYRIN SQ SCH (09:58)
[2022-02-06] MEDS: POLYETHYLENE GLYCOL (HEALTHYLAX) 3350 17 GM PACKET PO SCH (09:58)
[2022-02-06] MEDS: OXcarbazepine 300 MG TABLET (UD) PO SCH ×2 (09:58→21:41)
[2022-02-06 19:26] LABS: CALCIUM 9.6 mg/dL (8.5-10.1)
[2022-02-06 19:27] LABS: BLOOD UREA NITROGEN 27.2 mg/dL (7-18)
[2022-02-06] MEDS: ROSUVASTATIN CA 20 MG TABLET PO SCH (21:40)
[2022-02-06] MEDS: traZODone HCL 50 MG TABLET (FP) PO SCH (21:40)
[2022-02-06] MEDS: BRIMONIDINE TARTRATE 0.2% OPHTHALMIC 5 ML BOTTLE OU SCH (21:42)
[2022-02-06] MEDS: TIMOLOL 0.5% OPHTHALMIC SOL 5 ML BOTTLE OU SCH (21:42)
[2022-02-07] MEDS: ALBUTEROL SO4 2.5/IPRATROPIUM 0.5 INH SOL 3 ML VIAL.NEB. NEB SCH (07:50)
[2022-02-07] MEDS ORDERED: ONDANSETRON 4 MG TABLET PO PRN (09:38)
[2022-02-07] MEDS ORDERED: predniSONE 5 MG TABLET (UD) PO SCH (10:00)
[2022-02-07] MEDS ORDERED: FUROSEMIDE 40 MG TABLET (FP) PO SCH ×2 (10:00)
[2022-02-07] MEDS: ENOXAPARIN NA (PORCINE) 40 MG/0.4 ML DISP.SYRIN SQ SCH (10:37)
[2022-02-07] MEDS: metoPROLOL SUCCINATE 25 MG TAB.SR.24H (FP) PO SCH (10:37)
[2022-02-07] MEDS: guaiFENesin 600 MG TABLET.ER (FP) PO SCH ×2 (10:38→22:20)
[2022-02-07] MEDS: LATANOPROST 0.005% OPHTH SOLN 2.5ML BOTTLE OD SCH (10:38)
[2022-02-07] MEDS: POLYETHYLENE GLYCOL (HEALTHYLAX) 3350 17 GM PACKET PO SCH (10:38)
[2022-02-07] MEDS ORDERED: OXcarbazepine 300 MG/5 ML 250 ML BULK BOTTLE PO ONE (11:03)
[2022-02-07] MEDS: EZETIMIBE 10 MG TABLET (FP) PO SCH (11:29)
[2022-02-07] MEDS ORDERED: OXcarbazepine 300 MG TABLET (UD) PO ONE (11:30)
[2022-02-07] MEDS ORDERED: OXcarbazepine 300 MG TABLET (UD) PO SCH (11:45)
[2022-02-07] MEDS: LOSARTAN POTASSIUM 50 MG TABLET PO SCH (13:27)
[2022-02-07] MEDS: FUROSEMIDE 40 MG TABLET (FP) PO SCH (13:27)
[2022-02-07] MEDS: GABAPENTIN 100 MG CAPSULE PO SCH ×2 (13:27→22:20)
[2022-02-07] MEDS: amLODIPine BESYLATE 5 MG TABLET (FP) PO SCH (22:20)
[2022-02-07] MEDS: ROSUVASTATIN CA 20 MG TABLET PO SCH (22:21)
[2022-02-07] MEDS: ASPIRIN/DIPYRIDAMOLE 25 MG/200 MG CAPSULE PO SCH (22:22)
[2022-02-07] MEDS: OXcarbazepine 300 MG TABLET (UD) PO SCH (22:23)
[2022-02-07] MEDS: TEMAZEPAM 15 MG CAPSULE PO SCH (22:26)
[2022-02-08] MEDS: GABAPENTIN 100 MG CAPSULE PO SCH ×3 (05:09→22:57)
[2022-02-08] MEDS: FUROSEMIDE 40 MG TABLET (FP) PO SCH ×2 (05:09→13:08)
[2022-02-08] MEDS: LATANOPROST 0.005% OPHTH SOLN 2.5ML BOTTLE OD SCH (09:40)
[2022-02-08] MEDS: FLUTICASONE/UMECLIDIN/VILANTER(100-62.5-25 TRELEGY ELLIPTA) INAHLER IH SCH (09:42)
[2022-02-08] MEDS: ENOXAPARIN NA (PORCINE) 40 MG/0.4 ML DISP.SYRIN SQ SCH (09:43)
[2022-02-08] MEDS: EZETIMIBE 10 MG TABLET (FP) PO SCH (09:43)
[2022-02-08] MEDS: LOSARTAN POTASSIUM 50 MG TABLET PO SCH (09:43)
[2022-02-08] MEDS: metoPROLOL SUCCINATE 25 MG TAB.SR.24H (FP) PO SCH (09:43)
[2022-02-08] MEDS: OXcarbazepine 300 MG TABLET (UD) PO SCH ×2 (09:43→23:01)
[2022-02-08] MEDS: ASPIRIN/DIPYRIDAMOLE 25 MG/200 MG CAPSULE PO SCH ×2 (09:44→22:57)
[2022-02-08] MEDS: guaiFENesin 600 MG TABLET.ER (FP) PO SCH ×2 (09:44→23:00)
[2022-02-08] MEDS: POLYETHYLENE GLYCOL (HEALTHYLAX) 3350 17 GM PACKET PO SCH (09:48)
[2022-02-08] MEDS: PATIENT'S OWN MEDICATION (NON-FORMULARY) (Omeprazole [Omeprazole] 10 MG) PO SCH (18:12)
[2022-02-08 18:41] LABS: BLOOD UREA NITROGEN 21.7 mg/dL (7-18); CALCIUM 9.1 mg/dL (8.5-10.1)
[2022-02-08 18:44] LABS: CREATININE 0.9 mg/dL (0.55-1.3)
[2022-02-08 19:28] LABS: MAGNESIUM 2.1 mg/dL (1.8-2.4)
[2022-02-08 19:32] LABS: PHOSPHOROUS 4.2 mg/dL (2.5-4.9)
[2022-02-08] MEDS: amLODIPine BESYLATE 5 MG TABLET (FP) PO SCH (22:57)
[2022-02-08] MEDS: ROSUVASTATIN CA 20 MG TABLET PO SCH (22:57)
[2022-02-08] MEDS: TEMAZEPAM 15 MG CAPSULE PO SCH (23:00)
[2022-02-09] MEDS: FUROSEMIDE 40 MG TABLET (FP) PO SCH ×2 (06:26→15:02)
[2022-02-09] MEDS: GABAPENTIN 100 MG CAPSULE PO SCH ×3 (06:26→23:59)
[2022-02-09] MEDS: metoPROLOL SUCCINATE 25 MG TAB.SR.24H (FP) PO SCH (10:12)
[2022-02-09] MEDS: EZETIMIBE 10 MG TABLET (FP) PO SCH (10:12)
[2022-02-09] MEDS: guaiFENesin 600 MG TABLET.ER (FP) PO SCH ×2 (10:12→23:59)
[2022-02-09] MEDS: POLYETHYLENE GLYCOL (HEALTHYLAX) 3350 17 GM PACKET PO SCH (10:12)
[2022-02-09] MEDS: LATANOPROST 0.005% OPHTH SOLN 2.5ML BOTTLE OD SCH ×2 (10:12→15:31)
[2022-02-09] MEDS: LOSARTAN POTASSIUM 50 MG TABLET PO SCH (10:12)
[2022-02-09] MEDS: FLUTICASONE/UMECLIDIN/VILANTER(100-62.5-25 TRELEGY ELLIPTA) INAHLER IH SCH ×2 (10:12→14:37)
[2022-02-09] MEDS: ENOXAPARIN NA (PORCINE) 40 MG/0.4 ML DISP.SYRIN SQ SCH (10:12)
[2022-02-09] MEDS: OXcarbazepine 300 MG TABLET (UD) PO SCH (11:33)
[2022-02-09] MEDS: ASPIRIN/DIPYRIDAMOLE 25 MG/200 MG CAPSULE PO SCH ×2 (11:33→23:59)
[2022-02-09] MEDS ORDERED: LATANOPROST 0.005% OPHTH SOLN 2.5ML BOTTLE OD SCH (13:56)
[2022-02-09] MEDS: ROSUVASTATIN CA 20 MG TABLET PO SCH (23:59)
[2022-02-10] MEDS: OXcarbazepine 300 MG TABLET (UD) PO SCH ×2 (00:11→10:33)
[2022-02-10] MEDS: amLODIPine BESYLATE 5 MG TABLET (FP) PO SCH (00:13)
[2022-02-10] MEDS: TEMAZEPAM 15 MG CAPSULE PO SCH (01:55)
[2022-02-10] MEDS: GABAPENTIN 100 MG CAPSULE PO SCH ×2 (06:00→15:24)
[2022-02-10] MEDS: FUROSEMIDE 40 MG TABLET (FP) PO SCH ×2 (06:00→15:24)
[2022-02-10] MEDS: metoPROLOL SUCCINATE 25 MG TAB.SR.24H (FP) PO SCH (10:31)
[2022-02-10] MEDS: EZETIMIBE 10 MG TABLET (FP) PO SCH (10:31)
[2022-02-10] MEDS: LOSARTAN POTASSIUM 50 MG TABLET PO SCH (10:32)
[2022-02-10] MEDS: guaiFENesin 600 MG TABLET.ER (FP) PO SCH (10:32)
[2022-02-10] MEDS: ENOXAPARIN NA (PORCINE) 40 MG/0.4 ML DISP.SYRIN SQ SCH (10:32)
[2022-02-10] MEDS: ASPIRIN/DIPYRIDAMOLE 25 MG/200 MG CAPSULE PO SCH (10:32)
[2022-02-10] MEDS: POLYETHYLENE GLYCOL (HEALTHYLAX) 3350 17 GM PACKET PO SCH (10:32)
[2022-02-10] MEDS: FLUTICASONE/UMECLIDIN/VILANTER(100-62.5-25 TRELEGY ELLIPTA) INAHLER IH SCH (10:37)
[2022-02-10 15:17] VITALS: BP 136/50; PULSE 78; TEMP 97.9
== END 2022-02-10 21:02 | disposition home or self-care (01) | DRG 291 ==
LOC: FER 15:49 → FM/S 17:27 → J7W 01-26 20:24 → J5S 02-09 02:26
PROVIDERS: ADMIT Internal Medicine; ATTEND Internal Medicine
DX: I11.0 Hypertensive heart disease with heart failure (principal); J18.9 Pneumonia, unspecified organism; I50.33 Acute on chronic diastolic (congestive) heart failure; J96.21 Acute and chronic respiratory failure with hypoxia; J44.0 Chronic obstructive pulmonary disease with (acute) lower respiratory infection; E87.2 Acidosis; N17.9 Acute kidney failure, unspecified; I27.20 Pulmonary hypertension, unspecified; E78.5 Hyperlipidemia, unspecified; I35.0 Nonrheumatic aortic (valve) stenosis; K21.9 Gastro-esophageal reflux disease without esophagitis; D50.9 Iron deficiency anemia, unspecified
CPT/HCPCS: 0241U-QW; 36415; 71045-TC-FY; 71275-TC; 74177-TC; 80048; 80053; 80061; 82803; 83540; 83550; 83605; 83735; 83880; 84100; 84484; 85025; 85027; 85379; 87040; 87899; 93005; 93306-TC; 93970-TC; 94640; 94660; 94761; 97116-GP; 97161-GP; 99285-25; J1644; J1756